=== PATIENT | female | born 1990 | race Caucasian/White ===

== ENCOUNTER 2017-01-05 16:44 | Emergency (ER) | payer OTHER ==
[2017-01-05 16:57] VITALS: BP 121/69; PULSE 91; RESP 18; TEMP 97.9; O2SAT 96
--- NOTE | 2017-01-05 17:29 | EDPHY ---
H & P Stated Complaint: fell at climbing gym approx 12ft inj both ankles l>r/denies other inj Source: Patient Exam Limitations: No limitations - Personal History LMP (Females 10-55): 15-21 Days Ago Current Tetanus/Diphtheria Vaccine: Unsure - Medical/Surgical History Hx Asthma: No Hx Chronic Respiratory Disease: No Hx Diabetes: No Hx Cardiac Disease: No Hx Renal Disease: No Hx Cirrhosis: No Hx Alcoholism: No Hx HIV/AIDS: No Hx Splenectomy or Spleen Trauma: No Other PMH: denies - Social History Smoking Status: Never smoked Time Seen by Provider: 01/05/17 17:29 HPI/ROS: HPI: This is a 26-year-old female presents with Chief Complaint: fell at climbing gym approx 12ft inj both ankles l>r/denies other inj Location: Left ankle > right ankle Quality: Injury Duration: 1-3 hours prior to arrival Signs and Symptoms: No bleeding, no radiation, no numbness, no weakness, no tingling, no LOC, + decreased range of motion, + swelling, + pain Timing: Sudden Severity: Moderate Context: Patient complains of left lateral ankle and right ankle constant mild- to-moderate pain that is nonradiating in nature and worsened with weight- bearing after she was in door climbing and fell approximately 10 feet and landed directly on both feet on mats. She immediately felt pain in her right ankle and then several minutes later her left ankle. Her left ankle is more swollen. She drove herself to the emergency room today and is able to ambulate with minimal deficits. She is not apply ice or taking any [id number] pain medications. She denies head injury/LOC/neck pain/paresthesias. LMP 2-3 weeks ago Modifying Factors: None Comment: ROS: see HPI Constitutional: No fever, no chills, no weight loss Eyes: No blurred vision Respiratory: No shortness of breath, no cough Cardiovascular: No chest pain Gastrointestinal: No nausea, no vomiting no diarrhea Genitourinary: No dysuria Extremities: No myalgias Neurologic: No weakness, no numbness Skin: No rashes Hematologic: No bruising, no bleeding MEDICAL/SURGICAL/SOCIAL HISTORY: Medical history: Generally healthy. Does not take any regular medications. Surgical history: Denies Social history: Employed CONSTITUTIONAL: awake and alert, no obvious distress HEENT: Atraumatic and normocephalic, PERRL, EOMI. Tympanic membranes clear. Oropharynx clear, no exudate and moist pink mucosa. Airway patent. No lymphadenopathy. No meningismus. Cardiovascular: Normal S1/S2, regular rate, regular rhythm, without murmur rub or gallop. PULMONARY/CHEST: Symmetrical and nontender. Clear to auscultation bilaterally. Good air movement. No accessory muscle usage. ABDOMEN: Soft, nondistended, nontender, no rebound, no guarding, no peritoneal signs, no masses or organomegaly. No CVAT. EXTREMITIES: 2/2 pulses, RIGHT Ankle; Plantar flexion to 50, dorsiflexion to 20. Foot inversion to 35 degree. No Anterior talofibular ligament. No Calcaneofibular ligament, no posterior talofibular ligament, no posterior inferior tibiofibular ligament Achilles tendon intact. Left Ankle; Plantar flexion to 50, dorsiflexion to 20. Foot inversion to 35 degree. Positive tenderness Anterior talofibular ligament. Positive tenderness Calcaneofibular ligament, positive tenderness posterior talofibular ligament, no tenderness posterior inferior tibiofibular ligament Achilles tendon intact. strength 5/5, no deformities, no clubbing, no cyanosis or edema. NEUROLOGICAL: no focal neuro deficits. GCS 15. SKIN: Warm and dry, no erythema. no rash. Good capillary refill. (Mercedes Lee) Constitutional: Initial Vital Signs Temperature (C) 36.6 C 01/05/17 16:53 Heart Rate 91 01/05/17 16:53 Respiratory Rate 18 01/05/17 16:53 Blood Pressure 121/69 H 01/05/17 16:53 O2 Sat (%) 96 01/05/17 16:53 O2 Delivery Mode Room Air Allergies/Adverse Reactions: Penicillins Allergy (Verified 01/05/17 16:52) Sulfa (Sulfonamide Antibiotics) Allergy (Verified 01/05/17 16:52) Home Medications: Medication Instructions Recorded Claritin 01/05/17 Sertraline HCl 01/05/17 oxyCODONE/APAP 5325 [Percocet 1 - 2 tab PO Q4H PRN #20 tab 01/05/17 5/325 (*)] Medical Decision Making - Diagnostics Imaging Results: Imaging Impressions Ankle X-Ray 01/05/17 17:08 Impression: 1. Acute fracture of the right navicular bone. 2. Probable avulsion injury at the left lateral malleolus. Dr. Washington discussed these findings by telephone with LAUREN Lee on 2016 at 17:57 hours. Ankle X-Ray 01/05/17 17:09 Impression: 1. Acute fracture of the right navicular bone. 2. Probable avulsion injury at the left lateral malleolus. Dr. Washington discussed these findings by telephone with LAUREN Lee on 2016 at 17:57 hours. Procedures: Procedure: Splint placement. A right posterior ankle splint was applied by the Emergency Room marine electronics technician. After application of the splint I returned and re-examined the patient. The splint was adequately immobilizing the joint and distal to the splint the patient's circulation and sensation was intact. Procedure: Splint placement. An left air stirrup splint was applied by the Emergency Room marine electronics technician. After application of the splint I returned and re-examined the patient. The splint was adequately immobilizing the joint and distal to the splint the patient's circulation and sensation was intact. (Mercedes Lee) ED Course/Re-evaluation: Left and right x-rays ordered Ice pack applied Patient drove self to the emergency room in declined any ibuprofen or opiate pain medications Right ankle x-ray shows navicular bone fracture. Placed in posterior ankle splint and nonweightbearing status, given crutches. Left ankle x-ray shows left lateral malleolus swelling with small ossific fragment that could be an avulsion fracture; placed in air stirrup splint. No signs of neurovascular compromise/tenting of skin/compartment syndrome/ extremities and joints examined above and below area of concern and are neurovascularly intact. Kiko, Ortho follow-up (Mercedes Lee) Differential Diagnosis: Differential diagnosis includes but is not limited to tibia fracture, fibula fracture, midfoot fracture, nerve injury, ligament injury, sprain. (Mercedes Lee) Other Provider: The patient was evaluated and managed by the Physician Cable Tender/ Nurse Practitioner. My co-signature indicates that I have reviewed this chart and I agree with the findings and plan of care as documented. I am the secondary supervising physician. (Nithya Givens) Departure - Departure Disposition: Home, Routine, Self-Care Clinical Impression: Closed navicular fracture of right foot Qualifiers: Encounter type: initial encounter Fracture alignment: nondisplaced Qualified Code(s): S92.254A - Nondisplaced fracture of navicular [scaphoid] of right foot , initial encounter for closed fracture Grade 2 ankle sprain Qualifiers: Encounter type: initial encounter Laterality: left Qualified Code(s): S93.402A - Sprain of unspecified ligament of left ankle, initial encounter Closed avulsion fracture of left ankle Qualifiers: Encounter type: initial encounter Qualified Code(s): S82.892A - Other fracture of left lower leg, initial encounter for closed fracture Condition: Good Instructions: Ankle Fracture (ED), Ankle Sprain (ED), Ankle Stirrup Splint (ED) Additional Instructions: Keep the splints in place and dry until seen by Orthopedics. Take ibuprofen 600-800 mg every 6-8 hours with food as needed for pain and inflammation. Apply ice for 30 minutes at a time; 2-3 times per day for the next 1-2 days. Your to be nonweightbearing status on your right lower leg and use crutches to aid in ambulation. Please wear air stirrup splint on her left ankle when out of bed. Follow up with Orthopedics in 5-7 days at which time they will evaluate and recommend with you if conservative management versus surgery is indicated. Referrals: [facility] [Other] - As per Instructions Oksana Farfan MD [Medical Doctor] - As per Instructions Prescriptions: oxyCODONE/APAP 5/325 [Percocet 5/325 (*)] 1 - 2 tab PO Q4H PRN #20 tab PRN Reason: Pain, Severe
== END 2017-01-05 18:25 | disposition home or self-care (01) ==
DX: S92.254A Nondisplaced fracture of navicular [scaphoid] of right foot, initial encounter for closed fracture (principal); S82.892A Other fracture of left lower leg, initial encounter for closed fracture; S93.402A Sprain of unspecified ligament of left ankle, initial encounter; W17.89XA Other fall from one level to another, initial encounter; Y99.8 Other external cause status; Y93.39 Activity, other involving climbing, rappelling and jumping off